=== PATIENT | male | born 1940 | race Caucasian/White ===

== ENCOUNTER → 2019-04-15 | Outpatient (CLI) | payer OTHER ==
[~2019-04-15] MED LIST: ANTIVERT/2525 M1 PO; HYDROCHLOROTHIA25 M1 PO; MEDROL DOSEPAK4 MG PO; VERAPAMIL HCL120 M1 PO
[2019-04-15 10:21] LABS: BASO # 0.1 10*3/uL (0.0-0.1); BASO % 1.1 % (0.0-1.0); EOS # 0.2 10*3/uL (0.0-0.4); EOS % 2.7 % (1.0-4.0); HEMOGLOBIN 15.3 g/dl (14.0-18.0); LYMPH # 1.1 10*3/uL (1.3-4.4); LYMPH % 14.7 % (27.0-41.0); MEAN CELL VOLUME 70.9 fl (80.0-94.0); MEAN CORPUSCULAR HGB 18.4 pg (27.0-31.0); MEAN CORPUSCULAR HGB CONC 25.9 g/dl (33.0-37.0); MONO # 0.6 10*3/uL (0.1-1.0); MONO % 8.4 % (3.0-9.0); NEUT # 5.2 10*3/uL (2.3-7.9); NEUT % 70.9 % (47.0-73.0); PLATELET COUNT AUTOMATED 237 10*3/uL (130-400); RED BLOOD COUNT 8.32 10*6/uL (4.50-5.90); RED CELL DISTRI WIDTH 24.3 % (0-14.5); WHITE BLOOD COUNT 7.4 10*3/uL (4.8-10.8)
[2019-04-15 10:44] LABS: OVALOCYTES FEW; PLATELET SUFFICIENCY NORMAL (NORMAL); TARGET CELLS FEW; TOTAL CELLS COUNTED 100 #CELLS
[2019-04-15 10:45] LABS: MICROCYTOSIS MODERATE
[2019-04-15 11:14] LABS: ALBUMIN 3.5 gm/dl (3.1-4.5); BUN 14 mg/dl (7-24); CHLORIDE 107 mmol/L (98-107); CHOLESTEROL 111 mg/dL (<200); CREATININE 0.68 mg/dL (0.70-1.30); POTASSIUM 3.7 mmol/L (3.5-5.1); SGOT/AST 34 IU/L (3-35); SGPT/ALT 47 U/L (12-78); SODIUM 140 mmol/L (136-145); THYROXINE (T4) TOTAL 8.4 ug/dl (4.5-12.1); TOTAL PROTEIN 7.4 gm/dL (6.4-8.2); TRIGLYCERIDES 77 mg/dl (<150); VLDL CHOLESTEROL 15 mg/dL (6-40)
[2019-04-15 11:51] LABS: ALKALINE PHOSPHATASE 132 U/L (45-117); HDL CHOLESTEROL 45 mg/dl (40-60); LDL CHOLESTEROL 51 mg/dL (9-159)
[2019-04-15 11:57] LABS: BILIRUBIN, DIRECT 0.3 mg/dL (0.0-0.2)
== END | disposition home or self-care (01) ==
LOC: LAB 09:44
PROVIDERS: Family Medicine
DX: Z12.5 Encounter for screening for malignant neoplasm of prostate (principal); J44.9 Chronic obstructive pulmonary disease, unspecified; R53.83 Other fatigue; R63.4 Abnormal weight loss; Z79.899 Other long term (current) drug therapy